=== PATIENT | male | born 1995 | race African-American/Black ===

== ENCOUNTER 2017-09-30 15:27 | Emergency (ER) | payer MEDICAID, OTHER ==
[2017-09-30] MEDS: KETOROLAC 60 MG INJ IM (18:21)
[2017-09-30] MEDS: METHOCARBAMOL 750 MG TAB PO (18:32)
== END 2017-09-30 19:39 | disposition home or self-care (01) ==
LOC: FTE 15:27
DX: G62.9 Polyneuropathy, unspecified (principal)
CPT/HCPCS: 73110; 73110-RT; 96372; 99284-25